=== PATIENT | male | born 1985 | race Caucasian/White ===

== ENCOUNTER 2018-05-24 09:28 | Day surgery (SDC) | payer OTHER ==
[2018-05-20 10:09] LABS: Basophils # (auto) 0 uL; Basophils % (auto) 0.2 % (0.0-2.0); Eosinophils # (auto) 0.1 uL; Eosinophils % (auto) 1.9 % (0.0-7.0); Hematocrit 39.2 % (41.0-53.0); Hemoglobin 13.3 g/dL (13.5-17.5); Lymphocytes # (auto) 1.2 uL; Lymphocytes % (auto) 21.9 % (10.0-50.0); Mean Corpuscular Hemoglobin 29.2 pg (28.0-32.0); Mean Corpuscular Volume 85.8 fL (80.0-100.0); Monocytes # (auto) 0.4 uL; Monocytes % (auto) 6.4 % (0.0-12.0); Neutrophils # (auto) 3.9 uL; Neutrophils % (auto) 69.6 % (37.0-80.0); Nucleated Red Blood Cells % 0.1 %; Platelet Count (auto) 202 10^3/uL (140-450); Red Blood Cells 4.57 10^6/uL (4.5-5.90); Red Cell Distribution Width 12.7 % (11.8-14.3); White Blood Cell 5.6 10^3/uL (4.4-10.8)
[2018-05-20 10:28] LABS: INR 0.93 (0.9-1.15); Partial Thromboplastin Time 27.4 sec (23.78-33.04)
[~2018-05-24] VITALS: Ht 180.3 cm; Wt 83.9 kg
[2018-05-24] MEDS ORDERED: diphenhdrAMINE HCL 50 MG/1 ML VL ONE ×2 (11:30→12:13)
[2018-05-24] MEDS ORDERED: SODIUM CHLORIDE LOCK 10 ML ONE (12:13)
[2018-05-24] MEDS: fentaNYL CITRATE 100 MCG/2 ML VL ONE ×2 (12:15→12:18)
[2018-05-24] MEDS: MIDAZOLAM HCL 5 MG/ML-1ML VIAL ONE ×3 (12:15→12:21)
[2018-05-24] MEDS ORDERED: MIDAZOLAM HCL 5 MG/ML-1ML VIAL ONE (12:25)
[2018-05-24] MEDS ORDERED: fentaNYL CITRATE 100 MCG/2 ML VL ONE (12:25)
[2018-05-24 13:07] VITALS: BP 113/73
== END 2018-05-24 13:37 | disposition home or self-care (01) ==
LOC: GI 09:28
PROVIDERS: ATTEND Internal Medicine Gastroenterology
DX: K51.30 Ulcerative (chronic) rectosigmoiditis without complications (principal); K64.8 Other hemorrhoids; K62.89 Other specified diseases of anus and rectum
CPT/HCPCS: 36415; 45380; 85025; 85610; 85730; 88305; 88342; 99152; J1200; J2250; J3010; J7030